=== PATIENT | female | born 1960 | race Caucasian/White ===

== ENCOUNTER 2021-04-08 15:00 | Inpatient (IN) | payer BC ==
[2021-04-09 14:25] VITALS: BMI 32.1
[2021-04-13] MEDS ORDERED: Fentanyl 100 MCG/2 ML VIAL ONE ×5 (07:26→12:20)
[2021-04-13] MEDS ORDERED: Lidocaine 1% (PF) 30 ML VIAL ONE (07:26)
[2021-04-13] MEDS ORDERED: Midazolam HCl 2 mg/2 ml Vial ONE (07:26)
[2021-04-13] MEDS ORDERED: Clindamycin/D5W 600 mg/50 ml Premix Bag ONE (07:54)
[2021-04-13] MEDS ORDERED: Tranexamic Acid 1,000 MG/10 ML VIAL ONE (07:54)
[2021-04-13] MEDS ORDERED: Sodium Chloride 0.9% 100 ML ONE (07:54)
[2021-04-13] MEDS ORDERED: Vancomycin HCl 1.5 GM in Sodium Chloride 0.9% 250 ML 300 ML IVPB SCH ×2 (08:00→16:45)
[2021-04-13] MEDS ORDERED: Bupivacaine 0.25% HCL 30 ML VIAL ONE (09:03)
[2021-04-13] MEDS ORDERED: EPINEPHrine 1 MG/ML AMP ONE (09:03)
[2021-04-13] MEDS ORDERED: Levofloxacin 500 mg/D5W 100 ml Premix Bag ONE (09:07)
[2021-04-13] MEDS ORDERED: Fentanyl 100 MCG/2 ML VIAL IV PRN (09:26)
[2021-04-13] MEDS ORDERED: Zolpidem Tartrate 5 MG TAB PO PRN ×2 (09:30→11:12)
[2021-04-13] MEDS ORDERED: Promethazine HCl 25 MG/ML VIAL IM PRN ×2 (09:30→11:12)
[2021-04-13] MEDS ORDERED: Ondansetron PF 4 MG/2 ML Vial IVP PRN ×2 (09:30→11:12)
[2021-04-13] MEDS ORDERED: HYDROcodone/Acetaminophen 10/325 mg Tablet PO PRN ×2 (09:30)
[2021-04-13] MEDS ORDERED: traMADol HCl 50 MG TAB PO PRN ×3 (09:30→11:12)
[2021-04-13] MEDS ORDERED: Ropivacaine 0.2% 550 ML 550 ML NERVE BLCK SCH (09:30)
[2021-04-13] MEDS ORDERED: Bupivacaine HCl 0.5%/Epinephrine 1:200,000/PF 30 ml Vial ONE (09:45)
[2021-04-13] MEDS ORDERED: Ondansetron PF 4 MG/2 ML Vial ONE (09:45)
[2021-04-13] MEDS ORDERED: Ropivacaine 2% HCl/PF (20 MG/10 ML VIAL) ONE (09:45)
[2021-04-13] MEDS ORDERED: Ketorolac Tromethamine 30 MG/ML VIAL ONE (09:45)
[2021-04-13] MEDS ORDERED: Dexamethasone 20 MG/5 ML VIAL ONE (09:45)
[2021-04-13] MEDS ORDERED: PROPOFOL 200 MG/20 ML VIAL ONE (09:45)
[2021-04-13] MEDS ORDERED: Acetaminophen 325 MG TAB PO PRN (11:12)
[2021-04-13] MEDS ORDERED: Fentanyl 100 MCG/2 ML VIAL SLOW IVP PRN ×2 (11:12)
[2021-04-13] MEDS ORDERED: Ketorolac Tromethamine 30 MG/ML VIAL IVP SCH (12:00)
[2021-04-13] MEDS ORDERED: Non-Formulary Medication 1 EACH PO PRN (12:09)
[2021-04-13] MEDS ORDERED: Promethazine HCl 25 MG/ML VIAL IM/IV PRN (12:15)
[2021-04-13] MEDS ORDERED: Ondansetron HCl/PF 4 MG/2 ML Vial IVP PRN (12:15)
[2021-04-13] MEDS: HYDROcodone/Acetaminophen 10/325 mg Tablet PO PRN (14:05)
[2021-04-13] MEDS: Clindamycin/D5W 900 MG in Premix Bag 1 BAG IVPB SCH ×2 (15:26→21:58)
[2021-04-13] MEDS: Ketorolac Tromethamine 30 MG/ML VIAL IVP SCH (18:16)
[2021-04-13] MEDS: diphenhydrAMINE 25 MG CAP PO PRN (18:20)
[2021-04-13] MEDS: Aspirin 81 mg Enteric Coated Tablet PO SCH (20:53)
[2021-04-14] MEDS: Ketorolac Tromethamine 30 MG/ML VIAL IVP SCH ×3 (01:56→18:33)
[2021-04-14] MEDS: diphenhydrAMINE 25 MG CAP PO PRN ×3 (05:59→23:35)
[2021-04-14 06:09] LABS: Hemoglobin 11.7 g/dL (12.0-16.0); Mean Corpuscular HGB CONC 32.9 g/dL (32.0-36.0); Mean Corpuscular Hemoglobin 33.3 pg (27.0-31.0); Mean Platelet Volume 8.4 fL (7.4-10.4); Platelet Count 207 thou/uL (130-400); RBC Distribution Width 11.8 % (11.5-14.5); White Blood Cell (WBC) Count 9.1 thou/uL (4.8-10.8)
[2021-04-14] MEDS: Aspirin 81 mg Enteric Coated Tablet PO SCH ×2 (09:24→22:05)
[2021-04-14] MEDS: Senokot S 8.6-50 MG TAB PO SCH ×2 (09:24→22:16)
[2021-04-14] MEDS: Multivitamin W/ Minerals 1 TAB PO SCH (09:24)
[2021-04-14] MEDS: Ferrous Gluconate 324 MG TAB PO SCH ×2 (09:25→17:56)
[2021-04-14] MEDS: HYDROcodone/Acetaminophen 10/325 mg Tablet PO PRN ×3 (09:26→19:54)
[2021-04-15] MEDS: HYDROcodone/Acetaminophen 10/325 mg Tablet PO PRN ×2 (02:20→10:30)
[2021-04-15] MEDS: Ketorolac Tromethamine 30 MG/ML VIAL IVP SCH ×3 (02:23→09:29)
[2021-04-15 06:03] LABS: Hemoglobin 11.3 g/dL (12.0-16.0); Mean Corpuscular HGB CONC 33.9 g/dL (32.0-36.0); Mean Corpuscular Hemoglobin 34.7 pg (27.0-31.0); Mean Platelet Volume 8.5 fL (7.4-10.4); Platelet Count 185 thou/uL (130-400); RBC Distribution Width 11.8 % (11.5-14.5); Red Blood Cell (RBC) Count 3.26 mill/uL (4.20-5.40); White Blood Cell (WBC) Count 7.4 thou/uL (4.8-10.8)
[2021-04-15 07:54] VITALS: TEMP 98.6
[2021-04-15] MEDS: Senokot S 8.6-50 MG TAB PO SCH (09:16)
[2021-04-15] MEDS: Ferrous Gluconate 324 MG TAB PO SCH (09:16)
[2021-04-15] MEDS: Multivitamin W/ Minerals 1 TAB PO SCH (09:17)
[2021-04-15] MEDS: Aspirin 81 mg Enteric Coated Tablet PO SCH (09:17)
[2021-04-15 11:19] VITALS: BP 169/73
== END 2021-04-15 11:58 | disposition home or self-care (01) | DRG 470 ==
LOC: SURG A 04-13 06:45 → SURG B 04-13 12:05 → EDSTATUS 04-13 15:00
PROVIDERS: ADMIT Orthopaedic Surgery; ATTEND Orthopaedic Surgery
PROC: 0SRC0J9 Replacement of Right Knee Joint with Synthetic Substitute, Cemented, Open Approach (ICD-10-PCS; principal; 2021-04-13)
DX: M17.11 Unilateral primary osteoarthritis, right knee (principal); M21.161 Varus deformity, not elsewhere classified, right knee; Z79.891 Long term (current) use of opiate analgesic
CPT/HCPCS: 36415; 85027; A4306; C1713; C1776; J0171; J1100; J1885; J1956; J2001; J2250; J2405; J2704; J2795; J3010; J3370; J3490; J7050; S0020

== ENCOUNTER 2024-02-27 14:07 | Outpatient (CLI) | payer BC ==
[2024-02-27 16:03] LABS: #Basophils 0.05 10x3/uL (0.0-0.2); #Eosinphils 0.15 10x3/uL (0.0-0.5); #Monocytes 0.49 10x3/uL (0.0-1.1); #Neutrophils 4.65 10x3/uL (1.5-8.4); %Basophils 0.8 % (0.0-2.0); %Eosinophils 2.3 % (0.0-6.0); %Lymphocytes 19.2 % (18.0-47.0); %Monocytes 7.4 % (0.0-10.0); %Neutrophils 70.1 % (40.0-75.0); Hematocrit 41.7 % (34.9-44.5); Hemoglobin 14.4 g/dL (12.0-15.5); Mean Corpuscular HGB CONC 34.5 g/dL (32.0-36.0); Mean Corpuscular Hemoglobin 34.3 pg (27.0-33.0); Mean Corpuscular Volume 99.3 fL (81.6-98.3); Mean Platelet Volume 10.9 fL (7.4-10.4); Platelet Count 256 10x3/uL (150-450); RBC Distribution Width 12.7 % (11.5-14.5); White Blood Cell (WBC) Count 6.6 10x3/uL (3.5-10.5)
[2024-02-27 16:09] LABS: Prothrombin Time 10.9 sec (9.5-12.1)
[2024-02-27 16:24] LABS: Anion Gap 14 mmol/L (10-20); BUN (Urea Nitrogen) 15 mg/dL (9.8-20.1); Calc. Creatinine Clearance 0 mL/min (70-130); Calcium 9.6 mg/dL (7.8-10.44); Carbon Dioxide 26 mmol/L (23-31); Chloride 104 mmol/L (98-107); Estimated GFR 76; Glucose 102 mg/dL (80-115); Sodium 140 mmol/L (136-145)
== END 2024-02-27 14:08 | disposition home or self-care (01) ==
LOC: LABBT 14:07
PROVIDERS: ATTEND Orthopaedic Surgery
DX: Z01.818 Encounter for other preprocedural examination (principal); M17.12 Unilateral primary osteoarthritis, left knee
CPT/HCPCS: 80048; 85025; 85610; 87081; 93005; 93010

== ENCOUNTER 2024-03-05 05:58 | Observation (INO) | payer BC ==
[2024-02-27 14:33] VITALS: BMI 27.3
[2024-03-05] MEDS ORDERED: PROPOFOL 20 ML ONE (06:17)
[2024-03-05] MEDS ORDERED: fentaNYL PF 100 MCG/2 ML SYRINGE ONE ×3 (06:17→09:07)
[2024-03-05] MEDS ORDERED: Midazolam HCl 2 mg/2 ml Vial ONE ×2 (06:17→06:21)
[2024-03-05] MEDS ORDERED: Lidocaine 1% (PF) 30 ML VIAL ONE (06:21)
[2024-03-05] MEDS ORDERED: fentaNYL 50 mcg/mL 1 mL Vial ONE (06:21)
[2024-03-05] MEDS ORDERED: Bupivacaine PF 0.5% 30 ML VIAL ONE (06:21)
[2024-03-05] MEDS ORDERED: EPINEPHrine 1 MG/ML VIAL ONE ×2 (06:21→06:26)
[2024-03-05] MEDS ORDERED: Bupivacaine 0.25% HCL 30 ML VIAL ONE (06:26)
[2024-03-05] MEDS ORDERED: CEFAZOLIN 2 GM VIAL ONE (06:54)
[2024-03-05] MEDS ORDERED: Sodium Chloride 0.9% 100 ML ONE ×2 (06:55→07:10)
[2024-03-05] MEDS ORDERED: Vancomycin (BATCH) 1.5 GM/300 ML BAG ONE (07:10)
[2024-03-05] MEDS ORDERED: Tranexamic Acid 1,000 MG/10 ML VIAL ONE (07:10)
[2024-03-05] MEDS ORDERED: fentaNYL 50 mcg/mL 1 mL Vial SLOW IVP PRN (07:38)
[2024-03-05] MEDS ORDERED: Ondansetron PF 4 MG/2 ML Vial IVP PRN ×2 (07:45→11:28)
[2024-03-05] MEDS ORDERED: Promethazine HCl 25 MG/ML VIAL IM PRN ×3 (07:45→11:28)
[2024-03-05] MEDS ORDERED: Ropivacaine 0.2% 550 ML 550 ML NERVE BLCK SCH (07:45)
[2024-03-05] MEDS ORDERED: HYDROcodone/Acetaminophen 10/325 mg Tablet PO PRN (07:45)
[2024-03-05] MEDS ORDERED: traMADol HCl 50 MG TAB PO PRN ×2 (07:45)
[2024-03-05] MEDS ORDERED: Zolpidem Tartrate 5 MG TAB PO PRN ×2 (07:45→11:28)
[2024-03-05] MEDS ORDERED: Ondansetron PF 4 MG/2 ML Vial ONE (07:50)
[2024-03-05] MEDS ORDERED: Dexamethasone 20 MG/5 ML VIAL ONE (07:50)
[2024-03-05] MEDS ORDERED: Metoclopramide HCl 10 MG (2 mL) VIAL ONE (07:50)
[2024-03-05] MEDS ORDERED: HYDROmorphone 2 MG/ML VIAL ONE (08:01)
[2024-03-05] MEDS ORDERED: Ondansetron HCl/PF 4 MG/2 ML Vial IVP PRN (08:27)
[2024-03-05] MEDS ORDERED: HYDROmorphone 0.5 MG/0.5 ML SYRINGE ONE ×3 (09:07→09:55)
[2024-03-05] MEDS ORDERED: Lidocaine 2% PF 5 ML VIAL ONE (09:42)
[2024-03-05] MEDS ORDERED: diphenhydrAMINE 50 MG/ML VIAL ONE (11:00)
[2024-03-05] MEDS ORDERED: Acetaminophen 325 MG TAB PO PRN (11:28)
[2024-03-05] MEDS ORDERED: Ketorolac Tromethamine 30 MG (1 mL) VIAL ONE (12:11)
[2024-03-05] MEDS ORDERED: HYDROcodone/Acetaminophen 10/325 mg Tablet ONE (12:11)
[2024-03-05] MEDS: HYDROcodone/Acetaminophen 10/325 mg Tablet PO PRN (12:13)
[2024-03-05] MEDS: Ketorolac Tromethamine 30 MG (1 mL) VIAL IVP SCH (12:14)
[2024-03-05] MEDS: CEFAZOLIN 2 GM in Sodium Chloride 0.9% 100 ML IVPB SCH (15:06)
[2024-03-05] MEDS: Aspirin 81 mg Enteric Coated Tablet PO SCH (20:20)
[2024-03-05] MEDS: Sodium Chloride 0.9% 1,000 ML IV SCH (20:24)
[2024-03-06] MEDS: diphenhydrAMINE 25 MG CAP PO PRN (02:40)
[2024-03-06 06:04] LABS: Hematocrit 32.4 % (36.0-47.0); Hemoglobin 10.7 g/dL (12.0-16.0); Mean Corpuscular Hemoglobin 33.3 pg (27.0-31.0); Mean Corpuscular Volume 100.9 fL (78.0-98.0); Mean Platelet Volume 10.9 fL (7.4-10.4); Platelet Count 202 10x3/uL (130-400); RBC Distribution Width 12.8 % (11.5-14.5); Red Blood Cell (RBC) Count 3.21 mill/uL (4.20-5.40)
[2024-03-06] MEDS: Multivitamin W/ Minerals 1 TAB PO SCH (08:21)
[2024-03-06] MEDS: Senokot S 8.6-50 MG TAB PO SCH (08:21)
[2024-03-06] MEDS: Magnesium Oxide 400 MG TAB PO SCH (08:22)
[2024-03-06] MEDS: Ferrous Gluconate 324 MG TAB PO SCH (08:22)
[2024-03-06 08:52] VITALS: BP 142/71; TEMP 98.4
== END 2024-03-06 12:45 | disposition home or self-care (01) ==
LOC: SDC 05:58 → SJJU 12:42
PROVIDERS: ADMIT Orthopaedic Surgery; ATTEND Orthopaedic Surgery
PROC: 0SRD0JZ Replacement of Left Knee Joint with Synthetic Substitute, Open Approach (ICD-10-PCS; principal; 2024-03-05)
PROC: 3E0T3BZ Introduction of Anesthetic Agent into Peripheral Nerves and Plexi, Percutaneous Approach (ICD-10-PCS; 2024-03-05)
DX: M17.12 Unilateral primary osteoarthritis, left knee (principal); Z90.49 Acquired absence of other specified parts of digestive tract; Z90.89 Acquired absence of other organs; Z88.0 Allergy status to penicillin; Z96.659 Presence of unspecified artificial knee joint
CPT/HCPCS: 36415; 85027; A4306; C1713; C1776; J0171; J0665; J1100; J1170; J1200; J1885; J2001; J2250; J2405; J2704; J2765; J2795; J3010; J3370; J3490